=== PATIENT | male | born 1950 | race Caucasian/White ===

== ENCOUNTER 2020-11-11 06:52 | Day surgery (SDC) | payer OTHER ==
[~2020-11-11 06:52] MED LIST: ASPIRIN81 MG PO; FLAX OIL1000 MG PO; GLUCOSAMINE CH1 EAC1 PO; KAPSPARGO SPRIN25 MG PO; MULTI-VITAMIN1 EACH PO; NITROSTAT0.4 MG SL; NORVASC5 MG PO; VITAMIN D325 MC2 PO
--- NOTE | 2020-11-11 08:21 | NUR ---
11/11/20 0821 Rossana Hernandez 0818-PT TO PACU IN LL POSITION. EYES CLOSED. OPENS EYES TO VERBAL STIMULI. DENIES PAIN AND FALLS QUICKLY BACK TO SLEEP. BREATHING EASY AND UNLABORED. SPO2 >95% ON 3 L O2 VIA NC. PT ENCOURAGED TO PASS GAS.
--- NOTE | 2020-11-11 09:20 | OR ---
[facility] [address], [place] [address] Signed DATE OF OPERATION: 11/11/2020 SURGEON: Joel Conway MD PREOPERATIVE DIAGNOSES: 1. Screening. 2. Sigmoid diverticulosis. 3. Colonoscopy in 2009. POSTOPERATIVE DIAGNOSES: 1. Qfxbswi-xk-oeuvllvp sigmoid diverticulosis. 2. Isnpaax-cr-rfwluzju internal hemorrhoids. PROCEDURE: Colonoscopy without biopsy. ESTIMATED BLOOD LOSS: None. INDICATIONS: Ruel is a 70-year-old gentleman, who came in 2009 for his initial screening colonoscopy. He did have moderate sigmoid diverticulosis at that time. He has no current lower GI complaints. There is no family history of colon cancer or polyps. I gave him a booklet in the office on colonoscopy. He recalls the test quite well. He understands there is risk including, but not limited to gas bloating, crampy abdominal pain, bleeding, perforation requiring surgery, and missed diagnosis. He expressed understanding and wished to proceed. PROCEDURE NOTE: Ruel was taken into our endoscopy suite and placed in the left lateral decubitus position. He was given a total of 4 mg of Versed and 125 mcg of fentanyl to cover the case. A digital rectal exam was performed. He had good sphincter tone. No external hemorrhoids. Prostate gland has minimally swollen and moderately indurated. The left was a little more prominent than the right. The scope had been inserted and advanced up to the cecum under direct visualization of camera without difficulty. His prep was quite good. The scope was slowly withdrawn. We could easily see the appendiceal orifice and the ileocecal valve. We took several pictures throughout for photodocumentation. Once again, he has moderate sigmoid diverticulosis. They are moderate in size, moderate in number, and scattered about. The rectum was unremarkable. Upon retroflexion of the scope, he has zviecrq-wy-rmhildti standard internal hemorrhoid Electronically Signed By: JOEL CONWAY MD 11/11/20 0920 PATIENT NAME: RUEL ARMSTRONG OPERATIVE REPORT DATE OF : 46 REPORT #: [id number] PHYSICIAN: JOEL CONWAY MD PCP: SAMSON SAN MD REPORT IS CONFIDENTIAL AND NOT TO BE RELEASED WITHOUT AUTHORIZATION [facility] [address], [place] [address] Signed columns. After this, the gas was suctioned out, colonoscope removed. Ruel tolerated the procedure quite well. RECOMMENDATIONS: Ruel can follow up in 10 years for repeat colonoscopy so long his health holds up. Otherwise, this will represent his last colonoscopy. Joel Conway MD ALB/MODL /[id number] cc: [facility] [place], [place] Chart Filed Incomplete Joel Conway MD Copies: CHART FILED INCOMPLETE JOEL CONWAY MD ~ Electronically Signed By: JOEL CONWAY MD 11/11/20 0920 PATIENT NAME: RUEL ARMSTRONG OPERATIVE REPORT DATE OF : 46 REPORT #: [id number] PHYSICIAN: JOEL CONWAY MD PCP: SAMSON SAN MD REPORT IS CONFIDENTIAL AND NOT TO BE RELEASED WITHOUT AUTHORIZATION
== END 2020-11-11 09:08 | disposition home or self-care (01) ==
LOC: DS 06:52 → OPS 06:52 → DS 08:15 → OPS 08:15
PROVIDERS: ATTEND Colon & Rectal Surgery
PROC: 0DJD8ZZ Inspection of Lower Intestinal Tract, Via Natural or Artificial Opening Endoscopic (ICD-10-PCS; principal; 2020-11-11 08:15)
DX: Z12.11 Encounter for screening for malignant neoplasm of colon (principal); K57.30 Diverticulosis of large intestine without perforation or abscess without bleeding; N42.89 Other specified disorders of prostate; K64.8 Other hemorrhoids; I25.10 Atherosclerotic heart disease of native coronary artery without angina pectoris; I25.2 Old myocardial infarction; F17.200 Nicotine dependence, unspecified, uncomplicated; Z95.5 Presence of coronary angioplasty implant and graft; Z80.0 Family history of malignant neoplasm of digestive organs; Z79.82 Long term (current) use of aspirin; Z88.8 Allergy status to other drugs, medicaments and biological substances
CPT/HCPCS: 99153; G0500